=== PATIENT | male | born 1970 | race Caucasian/White ===

== ENCOUNTER 2016-08-19 08:56 | Inpatient (IN) ==
[2016-08-19 12:18] LABS: MANUAL DIFF NEEDED? NO
[2016-08-19] MEDS ORDERED: ASPIRIN EC PO ONE (12:21)
[2016-08-19 12:25] LABS: BASO% 0.2 % (0.0-0.8); EOS# 0.12 X1000 (0.0-0.7); EOS% 1.4 % (0.0-10.0); HEMATOCRIT 47.2 % (42.0-52.0); HEMOGLOBIN 16.9 g/dL (14.0-18.0); IMM GRAN# 0.04 X1000 (0.0-0.04); IMM GRAN% 0.5 % (0.0-0.5); LYMPH# 2.91 X1000 (1.2-3.4); LYMPH% 34.4 % (20.5-51.1); MCH 31.4 PG (27-31); MCHC 35.8 g/dL (33-37); MCV 87.6 FL (81-99); MONO# 0.29 X1000 (0.11-0.59); MONO% 3.4 % (1.7-9.3); NEUT% 60.1 % (42.2-75.2); PLT 202 X1000 (130-400); RBC 5.39 XMIL (4.7-6.1)
[2016-08-19 12:33] LABS: INR 0.99; PROTIME 10.4 Seconds (9.2-11.7); PTT 26.5 Seconds (22.0-36.0)
[2016-08-19 12:35] LABS: HEMOGLOBIN A1C 9.2 % (4.8-6.0)
[2016-08-19] MEDS: CELEXA PO SCH (12:39)
[2016-08-19] MEDS: NS 1,000 ML IV SCH (12:39)
[2016-08-19] MEDS: NEURONTIN PO SCH ×2 (12:40→21:36)
[2016-08-19] MEDS: JANUVIA PO SCH (12:40)
[2016-08-19] MEDS: LOVENOX SUBQ SCH (12:40)
[2016-08-19] MEDS: COZAAR PO SCH (12:40)
[2016-08-19 12:44] LABS: AGAP 16; ALBUMIN 4.1 g/dL (3.5-5.0); ALKALINE PHOSPHATASE 69 U/L (32-122); AMYLASE 35 U/L (20-200); BUN 8 mg/dL (8-22); CALCIUM 9.7 mg/dL (8.8-10.2); CHLORIDE 93 mmol/L (98-107); COSMO 282; GOT 14 U/L (10-34); GPT 27 U/L (10-44); LIPASE 45 U/L (13-60); POTASSIUM 3.9 mmol/L (3.5-5.1); SODIUM 134 mmol/L (136-145); TCO2 25 mmol/L (25-35); TOTAL BILIRUBIN 0.75 mg/dL (0.20-1.00); TOTAL PROTEIN 6.6 g/dL (6.3-8.3)
--- NOTE | 2016-08-19 12:52 | EKG Report ---
Test Performed on : 08/19/2016 12:35:10 PM Test Reason : chest pain Blood Pressure : / mmHG Vent. Rate : 092 BPM Atrial Rate : 092 BPM P-R Int : 190 ms QRS Dur : 090 ms QT Int : 352 ms P-R-T Axes : 058 -55 036 degrees QTc Int : 435 ms Normal sinus rhythm. Left axis deviation Pulmonary disease pattern Abnormal ECG No previous ECGs available Confirmed by Basil SOTO, Charlie Pappas ([id number]) on 08/19/2016 6:27:10 PM
[2016-08-19 13:16] LABS: URINE CULTURE NEEDED? NO; URINE MICRO REVIEW NEEDED? NO; URINE SOURCE CLEAN CATCH
[2016-08-19 13:20] LABS: BILIRUBIN URINE NEGATIVE (NEGATIVE); BLOOD URINE NEGATIVE (NEGATIVE); COLOR YELLOW; GLUCOSE URINE >1000 mg/dL (NEGATIVE); LEUKOCYTES URINE NEGATIVE (NEGATIVE); NITRITE URINE NEGATIVE (NEGATIVE); PH URINE 5.5; PROTEIN URINE NEGATIVE (NEGATIVE); SP GRAVITY URINE 1.017; TURBIDITY URINE CLEAR (CLEAR); UR EPITHELIAL CELLS <10 /HPF (<10); URINE BACTERIA NEGATIVE /HPF; URINE RBC <10 /HPF (<10); URINE WBC <10 /HPF (<10); UROBILINOGEN URINE NORMAL (NORMAL)
--- NOTE | 2016-08-19 13:58 | Diag Imaging Result Doc PS360 ---
EXAM: CHEST-2 VIEWS HISTORY: chest pain TECHNIQUE: COMPARISON: 01/16/2012 FINDINGS: The lungs are well expanded. The heart is not enlarged. The vessels are not distended. There are no infiltrates. No pleural effusions. IMPRESSION: No acute abnormality. Electronically signed by Obinna Loomis 08/19/2016 1:55 PM
--- NOTE | 2016-08-19 14:01 | CONSULTATION ---
DATE OF CONSULTATION: 08/19/2016 IMPRESSIONS: 1. Recurrent chest discomfort, possibly angina. 2. Chronic dyspnea. 3. Diabetes mellitus. 4. Hyperlipidemia. 5. Chronic cigarette use. RECOMMENDATIONS: 1. Repeat cardiac enzymes, but doubt myocardial insult. 2. Screen for coronary artery disease with Lexiscan sestamibi study. 3. Echocardiography. HISTORY: This 46-year-old white male with past history of diabetes mellitus, hyperlipidemia, and chronic cigarette use was admitted for further evaluation of chest discomfort. He actually just went to his primary care provider for knee arthritis. He mentioned his chest discomfort and on further questioning, his symptoms became concerning enough to put him in the hospital for evaluation. He relates that he has had episodes of chest pressure and mild shortness of breath with physical activity for the past couple of months. He is somewhat vague in describing his chest symptoms. He tends to ramble. He relates that he has diabetes mellitus and is supposed to be taking insulin, but he often forgets to take insulin. Apparently, he has some memory issues following a comatose state several years ago. He also has hyperlipidemia, but does not remember to take his lipid-lowering therapy. He smokes 1 pack of cigarettes per day. PAST MEDICAL HISTORY: 1. Diabetes mellitus. 2. Hyperlipidemia. 3. Degenerative joint disease of the back and knees. 4. Status post facial reconstruction for traumatic face injury. 5. Status post neck surgery in 2007. 6. Status post hernia repair. 7. Status post episode of 4 months in a coma related to an infectious process, from May 2008 to September 2008. Patient relates memory difficulty since that time. SOCIAL HISTORY: He smokes a pack cigarettes per day. He has not had an alcoholic beverage in almost 3 years, and prior to that drank rare alcoholic beverage. FAMILY HISTORY: Negative for premature coronary artery disease. REVIEW OF SYSTEMS: Pulmonary: Noteworthy for exertional dyspnea, but otherwise negative. Gastrointestinal: Negative. Constitutional: Negative. Remainder of the review of systems negative/noncontributory, with 14 total systems reviewed. PHYSICAL EXAMINATION: General: This is a middle-aged male in no distress. Vital Signs: As recorded are stable. HEENT: Extraocular movements intact. Mucous membranes moist. Neck: Supple, without jugular venous distention. There are no carotid bruits. Chest: Clear to auscultation. Cardiac: Reveals a regular rate and rhythm, without appreciable murmur or gallop. Abdomen: Soft and nontender. Bowel sounds are normal. Extremities: Without edema. Neurologic: Reveals him to be alert and fully oriented. Speech is fluent. He moves all 4 extremities equally well. Skin: Warm and dry. Psychiatric: Reveals mood to be appropriate. DIAGNOSTIC DATA: ECG demonstrates sinus rhythm, left axis deviation. cc: MD Forrest Mccoy MD
[2016-08-19] MEDS: HUMALOG SUBQ SCH ×2 (16:58→21:35)
[2016-08-19] MEDS ORDERED: ATIVAN PO PRN (17:34)
--- NOTE | 2016-08-19 20:11 | HISTORY AND PHYSICAL ---
CHIEF COMPLAINT: Chest pain. HISTORY OF PRESENT ILLNESS: Mr. Perdomo, a 46-year-old white gentleman, came for evaluation of knee pain. Pain was in both the knees, much more in the left knee, going on for 2-3 weeks. Lately the pain was getting worse. Moderate pain. He was describing it as aching, sharp pain. Sometimes soreness. No swelling or redness. More pain when his knee touches other object. The patient claims he also had pain in the chest and lower abdomen, which he described as a crushing pain or squeezing pain off and on with mild shortness of breath. The patient risk factors includes hypertension, hyperlipidemia, male, smoker and diabetes. Patient is noncompliant to medication. I evaluated patient in my office. Because of the atypical nature of chest pain, multiple risk factors, the patient lives by himself, I decided to admit him for further care. The patient was getting short of breath with minimal exertion. The patient does have chronic cough with scanty sputum production. He denied any hemoptysis. No pleuritic-type of chest pain. No dysphagia or odynophagia. At times epigastric discomfort. The patient does have incisional hernia in the epigastrium. No diarrhea, blood or mucus in the stool. Does have polyuria and polydipsia. No gross hematuria. No leg swelling. The patient does feel depressed and anxious. He does have mood disorder. Noncompliant to treatment. I did refer him to psychiatrist. The patient went once, but then he did not go. He did have an argument with psychiatrist. No further history available at this time. He denied any current suicidal or homicidal ideation. ALLERGY: Iodinated contrast media. Haldol. CURRENT MEDICATIONS: The patient is on Januvia, Lantus insulin, Neurontin, Lipitor, Celexa, Cozaar. The patient was not taking any medicine. The patient claimed he was forgetting even to take his insulin. He does take Neurontin, especially when he has significant neuropathic pain. PAST MEDICAL HISTORY: Hypertension. Hyperlipidemia. Diabetes mellitus complicated by peripheral neuropathy. Low back pain. The patient claimed he was in coma for long time. He had tracheostomy requiring abdominal surgery. The patient had incisional hernia. This happened many years ago. Mood disorder, noncompliant to treatment. Low back pain. FAMILY HISTORY: Mother with hypertension and had a stroke. Father of heroin overdose. Grandfather of heart attack at age 86. PERSONAL HISTORY: Single. Does smoke. Denied alcohol or substance abuse. Fairly independent in activities of daily living. REVIEW OF SYSTEMS: As per HPI. Otherwise, unobtainable. PHYSICAL EXAMINATION: GENERAL: Middle-aged white gentleman in mild distress. The rest from the chart. HEENT: Head atraumatic, normocephalic. Wilber conjunctivae. Anicteric sclerae. Extraocular muscle movement normal. Fundus cannot be penetrated. Good oral hygiene. No tonsillopharyngeal congestion or exudate. Ears and nose benign. NECK: Supple. No JVD, thyromegaly or lymphadenopathy. CHEST: Bilateral good air entry present. Occasional wheezing. CARDIOVASCULAR: S1 and S2 heard. No gallop or thrill. ABDOMEN: Soft, globular. The patient does have a scar of previous surgery in epigastric area. EXTREMITIES: No cyanosis, clubbing. No acute DVT. Crepitation both the knee joints. Movement of left knee painful. No acute synovitis. 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 Able to move all 4 limbs. LABORATORY DATA/DIAGNOSTICS: EKG revealed sinus rhythm, left axis deviation, right atrial enlargement possible. No acute ST-T wave changes. Chest x-ray, no acute abnormality. Cardiac isoenzymes were negative. CBC: WBC count 8.46, hemoglobin 16.9, hematocrit 47.2, platelet count 202,000. PT/INR is 0.99, PTT 26.5, blood sugar 383. Hemoglobin A1c 9.2. C-reactive protein 7.25. Urinalysis did reveal glycosuria. CONSIDERATION: 1. Chest pain with multiple risk factors. Looks like angina. 2. Uncontrolled diabetes mellitus. 3. Hypertension. 4. Hyperlipidemia. 5. Left knee pain. 6. Tobacco abuse. 7. Mood disorder. PLAN: Admit the patient. Cardiology consult. Appropriate lab. Close observation. Encourage patient to quit smoking. The overall plan discussed at length with the patient. He is in agreement. I appreciate Cardiology help managing this patient. cc: Forrest Swain MD
[2016-08-19] MEDS ORDERED: LIPITOR PO SCH (21:00)
[2016-08-19] MEDS: NICODERM PATCH TD SCH (21:36)
[2016-08-20] MEDS: NS 1,000 ML IV SCH ×2 (03:58→13:38)
[2016-08-20] MEDS ORDERED: NORCO-7.5 PO PRN (06:24)
[2016-08-20] MEDS ORDERED: PROTONIX IV SCH (06:30)
[2016-08-20] MEDS ORDERED: SODIUM CHLORIDE 0.9% INJ SCH (06:30)
--- NOTE | 2016-08-20 06:47 | PROGRESS NOTE ---
DATE: 08/20/2016 SUBJECTIVE: Mr. Perdomo is doing some better. The patient is a vague historian. He still has, at times, chest pain. Today, his pain is more of a soreness. Does have cough with scanty sputum production. No high-grade fever or chills. No nausea or vomiting. Denied any diarrhea. OBJECTIVE: Vital Signs: Vital signs noted. Neck: Supple. No JVD. Lungs: Bilateral occasional wheezing. Chest: The patient does have some chest wall tenderness on the left precordial area. CVS: S1 and S2 heard. Abdomen: Soft, globular. Bowel sounds present. Mild epigastric tenderness. No guarding or rigidity. Extremities: No cyanosis, clubbing. No acute DVT. EQUITY TRADER: Alert, awake. Able to move all 4 limbs. Musculoskeletal: Crepitation of left kidney. The patient admitted with chest pain. Multiple risk factors. CONSIDERATION: 1. Unstable angina unless proved otherwise. 2. Chest wall pain. 3. Uncontrolled diabetes mellitus. 4. Hyperlipidemia. 5. Hypertension. 6. Mood disorder. 7. Peripheral neuropathy. PLAN: I am going to add pain medication. Continue rest of the treatment. Blood work ordered for this morning. Results are pending. I am going to add Lantus insulin. Again, emphasized smoking cessation. Importance of risk factor modification. Knee x-ray results are pending. After reviewing the stress test result, we will make necessary recommendations. cc: Forrest Swain MD
[2016-08-20] MEDS: HUMALOG SUBQ SCH ×3 (06:48→15:48)
[2016-08-20 07:24] LABS: AGAP 15; ALBUMIN 3.7 g/dL (3.5-5.0); ALKALINE PHOSPHATASE 63 U/L (32-122); BUN 10 mg/dL (8-22); CALCIUM 9.1 mg/dL (8.8-10.2); CHLORIDE 101 mmol/L (98-107); COSMO 281; GOT 14 U/L (10-34); GPT 25 U/L (10-44); HDL 22 mg/dL (35-55); MAGNESIUM 1.6 mg/dL (1.5-2.7); POTASSIUM 4.1 mmol/L (3.5-5.1); SODIUM 137 mmol/L (136-145); TCO2 21 mmol/L (25-35); TOTAL BILIRUBIN 0.68 mg/dL (0.20-1.00); TOTAL PROTEIN 6.3 g/dL (6.3-8.3); TRIGLYCERIDES 1395 mg/dL (39-160)
[2016-08-20] MEDS ORDERED: SYMBICORT 160/4.5 MICROGM INHALER INH SCH (07:30)
--- NOTE | 2016-08-20 07:47 | Diag Imaging Result Doc PS360 ---
KNEE 3 VIEWS LEFT - 08/19/2016 INDICATION: knee pain TECHNIQUE: COMPARISON: None FINDINGS: Bones are intact and normally aligned. Joint spaces and soft tissues are clear. IMPRESSION: Negative exam. Electronically signed by Kana Castillo 08/20/2016 7:45 AM
[2016-08-20] MEDS ORDERED: LEXISCAN ONE (08:22)
[2016-08-20] MEDS ORDERED: LANTUS SUBQ SCH (09:00)
[2016-08-20] MEDS ORDERED: ASPIRIN EC PO SCH (09:00)
[2016-08-20] MEDS ORDERED: INSULIN PEN NEEDLES ONE (10:09)
[2016-08-20] MEDS: COZAAR PO SCH (10:10)
[2016-08-20] MEDS: NEURONTIN PO SCH ×3 (10:10→14:24)
[2016-08-20] MEDS: NICODERM PATCH TD SCH (10:10)
[2016-08-20] MEDS: CELEXA PO SCH (10:10)
[2016-08-20] MEDS: JANUVIA PO SCH (10:10)
[2016-08-20 13:16] VITALS: BP 138/85
[2016-08-20] MEDS: LOVENOX SUBQ SCH (13:38)
--- NOTE | 2016-08-20 15:10 | Diag Imaging Result Document ---
PROCEDURE NAME: MYOCARDIAL PERF SCAN, STR/REST - 08/19/2016 PROCEDURE: Lexiscan Cardiolite stress test. DESCRIPTION OF PROCEDURE IN DETAIL: Lexiscan was infused per standard protocol. There was some mild chest discomfort. Stress electrocardiogram was negative for ischemia. Following Lexiscan infusion, Cardiolite was injected. Total of 16 millicuries of Cardiolite was injected for the rest phase. Total of 44 millicuries of Cardiolite was injected for the stress phase. Gated SPECT images were obtained in standard views. 1. Images revealed significant diaphragmatic and chest wall attenuation. There is no evidence of ischemia. 2. There is moderate grade, fixed defect moderate size in the inferior wall. 3. Associated with normal wall motion. This could represent an attenuation defect versus scar. Would recommend clinical correlation. There was also a fixed defect in the inferoapical wall. This was again associated with normal wall motion. CONCLUSIONS: 1. Patient had mild chest discomfort during Lexiscan infusion. 2. Negative Lexiscan stress electrocardiogram. 3. Myocardial perfusion images revealed no evidence of ischemia. 4. There is moderate grade, moderate size fixed defect in the inferior wall and in the inferoapical wall. This is associated with significant chest wall attenuation and diaphragmatic attenuation, there is normal wall motion. This could represent attenuation defect versus low probability of scar. Would recommend clinical correlation. 5. Left ventricular ejection fraction 64%. Wall motion was normal. cc: MD Hector Lopez MD
--- NOTE | 2016-08-20 16:18 | PROGRESS NOTE ---
DATE: 08/20/2016 CARDIOLOGY FOLLOW-UP NOTE: SUBJECTIVE: Patient continues without further chest discomfort. He has had no dyspnea. He is comfortable on room air. OBJECTIVE: Vital Signs: Blood pressure 138, 138/85, heart rate 79 and regular, oxygen saturation 98% on room air. Chest: Clear to auscultation. Cardiac Exam: Reveals a regular rate and rhythm without appreciable murmur or gallop. There is no evidence of edema. LAB DATA: Includes troponin less than 0.01. Triglycerides 1395. Cholesterol 285. HDL cholesterol 22. Lexiscan sestamibi study demonstrates moderate size region of mild to moderate diminished activity in the basal to mid inferior wall which is fixed and associated with preserved regional wall motion. This is most consistent with diaphragmatic attenuation artifact. There is no convincing scintigraphic evidence of inducible myocardial ischemia. Normal left ventricular ejection fraction demonstrated. CONCLUSIONS: 1. Episodic chest discomfort with mixed features. Lexiscan sestamibi study demonstrates no convincing evidence of inducible myocardial ischemia and normal left ventricular systolic function. 2. Diabetes mellitus. 3. Hyperlipidemia. 4. Chronic cigarette use. RECOMMENDATIONS: 1. Would continue aspirin daily empirically. 2. Smoking cessation strongly advised. 3. Will defer management of hyperlipidemia to primary provider. 4. Given no evidence of inducible ischemia on Lexiscan sestamibi study, it is reasonable for patient to be discharged today. cc: MD Forrest Mccoy MD
--- NOTE | 2016-08-20 22:27 | DISCHARGE SUMMARY ---
ADMISSION DATE: 08/19/2016 DISCHARGE DATE: 08/20/2016 FINAL DISCHARGE DIAGNOSES: 1. Chest pain. Myocardial infarction ruled out by negative cardiac isoenzymes. Stress test was negative. 2. Uncontrolled diabetes mellitus. 3. Hyperlipidemia. 4. Hypertension. 5. Left knee pain. 6. Degenerative disc disease. 7. Mood disorder. 8. Patient is very noncompliant. 9. Tobacco abuse. 10. Gastritis. HOSPITAL COURSE: Mr. Perdomo is a 46-year-old, white gentleman admitted with chest pain, many typical, few atypical features but significant risk factor, the patient was admitted. [place] ruled out by negative cardiac isoenzymes, EKG noted. The patient underwent stress test which was negative. Senior Front End Web Developer evaluated patient and cleared him to be discharged. Patient is very eager to go home because he is taking care of his and his parents property. Patient was very much concerned about getting restless. He denied any chest pain. The patient does have some soreness in the left knee. No fever or chills. DISCHARGE PHYSICAL EXAMINATION: Vital signs: Noted. Neck: Supple. No JVD. Lungs: Bilateral good air entry present. Cardiovascular: S1 and S2 heard. Abdomen: Soft, globular. Bowel sounds present. 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 LAB DATA: Noted total cholesterol was 285, triglycerides 1395, HDL 22, hemoglobin A1c was 9.2. DISCHARGE INSTRUCTIONS: 1. I had a lengthy discussion with patient about his abnormal lab data, uncontrolled diabetes, hyperlipidemia, risk of continued smoking. The patient understood and agreed. I advised him to take medication regularly. He will start with 40 units of Lantus. Monitor Accu-Chek. I advised him how to gradually increase his insulin. Follow up with me in a week time. Low-fat low-cholesterol 1800 calorie diet. 2. I offered him a psychiatric appointment in the past. The patient did not go. I again offered him today, he refused. 3. We are going to get him an orthopedic evaluation as an outpatient as patient claims he cannot wait. is in [place] and he wants to go as soon as he can. I am going to discharge him at his request. DISCHARGE CONDITION: Satisfactory. cc: Forrest Swain MD
--- NOTE | 2016-08-21 16:48 | ECHO REPORT ---
ORDER DATE: 08/19/2016 INDICATION: Possible angina. Hyperlipidemia. Abnormal EKG. FINDINGS: 1. Right atrium is normal in size. 2. Trace tricuspid regurgitation. RV systolic pressure of 26. 3. Normal RV size and systolic function. 4. Trace pulmonic insufficiency. 5. Mild left atrial enlargement at 4.5. 6. No mitral valve prolapse. Trace mitral regurgitation. 7. Normal LV size, end-diastolic dimension of 4.3. Moderate left ventricular hypertrophy with posterior and interventricular septal wall thickness 1.4 and 1.6 cm respectively. Normal LV systolic function. Calculated EF of 58% with normal wall motion. 8. The aortic valve opens well. It is trileaflet. No evidence of stenosis or insufficiency. 9. The aorta appears normal in visualized segments. 10. No pericardial effusion seen. cc: MD Hector Roebrtson MD Bharat K. Vakharia, MD
== END 2016-08-20 19:50 | disposition home or self-care (01) ==
LOC: DIRADM 08:56 → 3N 11:07
PROVIDERS: ADMIT Internal Medicine; ATTEND Internal Medicine